=== PATIENT | female | born 1970 | race Caucasian/White ===

== ENCOUNTER → 2016-10-05 | Outpatient (CLI) | payer BC ==
--- NOTE | 2016-10-05 15:49 | DIAGNOSTIC IMAGING REPORT ---
ULTRASOUND RIGHT VENOUS DOPP LOWER EXT UNILAT CLINICAL HISTORY: Right leg pain TRAUMA COMPARISON STUDY: No previous studies for comparison. FINDINGS: Real-time and color flow Doppler imaging were performed. Flow was seen within the femoral, popliteal and calf veins with no intraluminal thrombus demonstrated. The saphenous vein is patent. There is a very small subcutaneous fluid collection at the level of the injury measuring 13 x 14 x 3 mm. This likely represents a small posttraumatic hematoma. IMPRESSION: No evidence of right lower extremity DVT. Electronically signed by: Amando Ricci M.D. 10/05/2016 3:47 PM Dictated Date/Time: 10/05/2016 3:46 PM
== END | disposition home or self-care (01) ==
LOC: C.ULTR 15:15
PROVIDERS: ATTEND Orthopaedic Surgery
DX: M79.661 Pain in right lower leg (principal)